=== PATIENT | male | born 1965 | race Caucasian/White ===

== ENCOUNTER → 2023-09-19 08:10 | Outpatient (REF) | payer OTHER, SELFPAY | LOC: HWRCS 08:10 | PROVIDERS: ATTENDING PHYSICIAN Internal Medicine Cardiovascular Disease; FAMILY PHYSICIAN Family Medicine | DX: R94.31 Abnormal electrocardiogram [ECG] [EKG] (principal) | CPT/HCPCS: 93306 ==

== ENCOUNTER → 2023-11-09 08:20 | Outpatient (REF) | payer OTHER, SELFPAY | LOC: PAVMRI 08:20 | PROVIDERS: ATTENDING PHYSICIAN Internal Medicine Cardiovascular Disease; FAMILY PHYSICIAN Family Medicine | DX: R93.1 Abnormal findings on diagnostic imaging of heart and coronary circulation (principal); I51.7 Cardiomegaly | CPT/HCPCS: 75561; 75565; A9585 ==